=== PATIENT | male | born 2000 | race Caucasian/White ===

== ENCOUNTER 2023-06-28 09:48 | Emergency (ER) | payer OTHER, SELFPAY ==
[2023-06-28 09:56] VITALS: BP 134/77; PULSE 82; RESP 14; TEMP 36.5; O2SAT 99; BMI 25.0
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
--- NOTE | 2023-06-28 10:27 | DI.MRI.S_ITS ---
PROCEDURE: MR LUMBAR SPINE WO CON INDICATIONS: progressive weakness LE bilaterally, pain for 8 months TECHNIQUE: Noncontrast sagittal T1 spin echo and T2 fast echo, sagittal STIR, and T2 fast spin echo through the lumbar spine. In cases with scoliosis, additional coronal T2 fast spin echo may be performed. COMPARISON: None. FINDINGS: Image quality: Diagnostic Alignment: Unremarkable Marrow: No acute fracture. Mild disc desiccation L4-L5 and L5-S1 Annular fissures are seen at L4-L5 and L5-S1. Cord: Conus terminates at L1. Unremarkable appearance of the cauda equina nerve roots Soft tissues: Unremarkable paravertebral soft tissues Specific levels: L1-L2: No stenosis L2-L3: Small diffuse disc bulge. Mild facet arthropathy. Minimal left subarticular recess narrowing. L3-L4: Mild facet arthropathy and small diffuse disc bulge. No stenosis. L4-L5: Moderate sized central protrusion. There is cdcn-vp-oztsachv bilateral subarticular recess narrowing. Dgsd-fm-gbiocuvb facet arthropathy. Small diffuse disc bulge. Mild bilateral neural foraminal narrowing. L5-S1: Moderate-sized central protrusion. There is scdv-so-ggvxnelo central narrowing. Mild facet arthropathy bilaterally. Mild bilateral neural foraminal narrowing. IMPRESSION: Spondylotic changes particularly at L4-L5 and L5-S1 as described above. Dictated by: Chano Rodriguez M.D. on 06/28/2023 at 11:11 Approved by: Chano Rodriguez M.D. on 06/28/2023 at 11:14
[2023-06-28] MEDS: OXYCODONE/ACETAMINOPHEN 5/325 TABLET 1 TAB PO (10:34)
[2023-06-28] MEDS: IBUPROFEN 400 MG TABLET PO (10:35)
[2023-06-28] MEDS: dexAMETHasone 4 MG TABLET 12 MG PO (11:51)
[2023-06-28 11:56] VITALS: BP 130/73; PULSE 67; RESP 16; O2SAT 99
== END 2023-06-28 12:15 | disposition home or self-care (01) ==
PROVIDERS: Emergency Provider Emergency Medicine
DX: M51.36 Other intervertebral disc degeneration, lumbar region (principal); M54.50 Low back pain, unspecified; X58.XXXA Exposure to other specified factors, initial encounter
CPT/HCPCS: 72148; 99283; 99284; J1100

== ENCOUNTER 2023-09-28 19:22 | Emergency (ER) | payer OTHER, SELFPAY ==
[2023-09-28 19:58] VITALS: BP 133/78; PULSE 94; RESP 18; TEMP 36.8; O2SAT 96; BMI 29.1
== END 2023-09-28 21:14 | disposition left against medical advice (07) ==
PROVIDERS: Emergency Provider Emergency Medicine
CPT/HCPCS: 99281

== ENCOUNTER 2024-01-31 11:14 | Emergency (ER) | payer OTHER, SELFPAY ==
[2024-01-31 11:19] VITALS: BP 124/86; PULSE 78; RESP 17; TEMP 36.4; O2SAT 98; BMI 29.1
[2024-01-31 12:03] VITALS: BP 117/57; PULSE 75; RESP 14; O2SAT 98
--- NOTE | 2024-01-31 12:53 | ED_ITS ---
HPI - Back Pain/Injury <Dorinda Montez PA-C - Last Filed: 01/31/24 12:58> General Chief Complaint: Back Pain/Injury Stated Complaint: back injury, diff sitting Time Seen by Provider: 01/31/24 11:36 History of Present Illness HPI Narrative: 23-year-old male with past medical history low back pain due to disc herniations presents to the ED with an acute on chronic exacerbation of lower back pain. Patient states that his back pain started spontaneously 1 week ago, no new trauma. Patient states that the pain is in the lower back, radiates down to his left ankle down the back of his left leg. Patient is currently under the care of a neurosurgeon for the lower back issues, is awaiting epidural steroid injections. Patient denies numbness, tingling, weakness. Denies saddle paresthesias, urinary hesitancy. No fever, chills. Patient has been taking ibuprofen and Tylenol with minimal relief. Related Data Home Medications Medication Instructions Recorded Confirmed ibuprofen 200 mg capsule (Advil 400 mg PO Q8H PRN Pain (Scale 06/28/23 06/28/23 Liqui-Gel) Score 4-6) Previous Rx's Medication Instructions Recorded dexamethasone 4 mg tablet 10 mg (2.5 x 4 mg) PO DAILY #5 tabs 06/28/23 cyclobenzaprine 10 mg tablet 10 mg PO TID PRN muscle spasm 5 01/31/24 days #15 tabs dexamethasone 4 mg tablet 10 mg (2.5 x 4 mg) PO DAILY 3 days 01/31/24 #8 tabs Allergies Allergy/AdvReac Type Severity Reaction Status Date / Time No Known Drug Allergies Allergy Verified 01/31/24 11:21 Review of Systems <Dorinda Montez PA-C - Last Filed: 01/31/24 12:58> Constitutional Constitutional: Denies chills, Denies fatigue, Denies fever(s), Denies frequent falls, Denies lethargy and Denies weakness Eyes Eyes: Denies change in vision, Denies eye discharge, Denies irritation and Denies loss of vision ENT Ears, Nose, Mouth, and Throat: Denies change in voice, Denies dizziness, Denies neck pain, Denies sore throat and Denies throat swelling Cardiovascular Cardiovascular: Denies chest pain, Denies irregular heart rhythm, Denies lightheadedness, Denies palpitations, Denies dyspnea, Denies dyspnea on exertion and Denies orthopnea Respiratory Respiratory: Denies cough, Denies dyspnea, Denies dyspnea on exertion and Denies wheezing Gastrointestinal Gastrointestinal: Denies abdominal pain, Denies change in bowel habits, Denies diarrhea, Denies nausea and Denies vomiting Musculoskeletal Musculoskeletal: Reports back pain, Denies neck pain, Denies numbness and Reports radiating pain into limb Integumentary/Breasts Skin/Breast: Denies pruritus, Denies erythema, Denies rash and Denies wounds Neurologic Neurologic: Denies behavioral changes, Denies confusion, Denies dizziness, Denies frequent falls, Denies loss of vision, Denies numbness and Denies weakness Psychiatric Psychiatric: Denies anxiety, Denies behavioral changes, Denies confusion, Denies depression, Denies homicidal ideation and Denies suicidal ideation Endocrine Endocrine: Denies fatigue, Denies flushing and Denies palpitations Hematologic/Lymphatic Hematologic/Lymphatic: Denies easy bruising Allergic/Immunologic Allergic/Immunologic: Denies urticaria, Denies throat swelling and Denies wheezing Patient History <Dorinda Montez PA-C - Last Filed: 01/31/24 12:58> Medical History Healthy adult male Social History Smoking Status: Current every day smoker Smoking Status: Current every day smoker tobacco type: vaping alcohol intake frequency: 0-2 drinks per day Substance Use Type: does not use Exam <Dorinda Montez PA-C - Last Filed: 01/31/24 12:58> Narrative Exam Narrative: Const General:?cooperative, healthy appearing and comfortable [facility] Head:?normal to inspection Ears:?hearing grossly normal bilaterally Nose:?external nose normal Face and sinus:?normal facial exam and sinuses nontender Mouth:?oral mucosae normal Throat:?posterior oropharynx normal Eyes General:?appearance normal, both eyes and all related structures Neck Neck:?normal visual inspection and no lymphadenopathy noted Resp Effort & Inspection:?normal respiratory effort Auscultation:?clear to auscultation bilaterally Cardio Rate:?regular rate Rhythm:?regular rhythm Musculoskeletal No midline tenderness to palpation. No paraspinal tenderness to palpation. There is full range of motion. Strength and sensation is intact. Patient is neurovascularly intact. Gait normal Neuro General:?patient alert, patient awake and patient oriented x3 Initial Vital Signs Initial Vital Signs: Vital Signs Temperature 97.6 F 01/31/24 11:19 Pulse Rate 78 01/31/24 11:19 Respiratory Rate 17 01/31/24 11:19 Blood Pressure 124/86 01/31/24 11:19 Pulse Oximetry 98 01/31/24 11:19 Oxygen Delivery Method Room Air 01/31/24 11:19 <Leigh Ann Acevedo DO - Last Filed: 01/31/24 18:56> Initial Vital Signs Initial Vital Signs: Vital Signs Temperature 97.6 F 01/31/24 11:19 Pulse Rate 78 01/31/24 11:19 Respiratory Rate 17 01/31/24 11:19 Blood Pressure 124/86 01/31/24 11:19 Pulse Oximetry 98 01/31/24 11:19 Oxygen Delivery Method Room Air 01/31/24 11:19 Course <Dorinda Montez PA-C - Last Filed: 01/31/24 12:58> Vital Signs Vital signs: Vital Signs - 8 hr 01/31/24 11:19 01/31/24 12:03 Temperature 97.6 F Pulse Rate 78 75 Respiratory Rate 17 14 Blood Pressure 124/86 117/57 L Pulse Oximetry 98 98 Oxygen Delivery Method Room Air Room Air <Leigh Ann Acevedo DO - Last Filed: 01/31/24 18:56> Vital Signs Vital signs: Vital Signs - 8 hr 01/31/24 11:19 01/31/24 12:03 Temperature 97.6 F Pulse Rate 78 75 Respiratory Rate 17 14 Blood Pressure 124/86 117/57 L Pulse Oximetry 98 98 Oxygen Delivery Method Room Air Room Air MDM - Back Pain/Injury <MANJINDER De Guzman Last Filed: 01/31/24 12:58> MDM Narrative Medical decision making narrative: 23-year-old male with past medical history low back pain due to disc herniations presents to the ED with an acute on chronic exacerbation of lower back pain. No midline tenderness to palpation, no new trauma. Unlikely fracture/dislocation. No red flag symptoms indicating a spinal emergency. No imaging indicated at this time. Will prescribe a dose of oral steroids, muscle relaxants. Patient agrees to follow-up with his neurosurgeon as soon as possible. ED return precautions discussed with patient. Patient verbalized understanding. Medical records reviewed: Yes Discharge Plan Departure Patient Disposition: Home Clinical Impression: Low back pain radiating down leg Instructions: DI for Back Pain With Sciatica Activity Restrictions/Additional Instructions: You were evaluated in the ED today for an acute exacerbation of lower back pain. Given that there was no new trauma or neurological deterioration, there is no indication for imaging today. you are being prescribed some oral steroids to address the acute inflammation. Please take those as prescribed. You were also being prescribed muscle relaxants to help with muscle spasms. The muscle relaxant might make you sleepy, therefore avoid using when driving or operating machinery. You may continue taking 800 mg of ibuprofen every 8 hours with food. You may also take Tylenol 1000 mg every 8 hours. Please follow-up with your neurosurgeon as soon as possible for further evaluation and possible epidural steroid injections. Return to the ED if you have worsening symptoms, numbness, tingling, weakness, urinary difficulties. Prescriptions: New dexamethasone 4 mg tablet 10 mg PO DAILY 3 Days Qty: 8 0RF cyclobenzaprine 10 mg tablet 10 mg PO TID PRN (Reason: muscle spasm) 5 Days Qty: 15 0RF No Action ibuprofen [Advil Liqui-Gel] 200 mg Capsule 400 mg PO Q8H PRN (Reason: Pain (Scale Score 4-6)) dexamethasone 4 mg tablet 10 mg PO DAILY Qty: 5 0RF Stand Alone Forms: Patient Portal/API/Survey ED Sign-out <Leigh Ann Acevedo DO - Last Filed: 01/31/24 18:56> Cosign ED Attending Andrea Attestation: I was immediately available in the department for consultation.
== END 2024-01-31 12:21 | disposition home or self-care (01) ==
PROVIDERS: Emergency Provider Student in an Organized Health Care Education/Training Program
DX: M54.50 Low back pain, unspecified (principal)
CPT/HCPCS: 99281

== ENCOUNTER → 2024-07-28 07:28 | Outpatient (CLI) | payer OTHER, SELFPAY ==
--- NOTE | 2024-07-28 07:30 | DI.MRI.S_ITS ---
PROCEDURE: MR LUMBAR SPINE WO CON INDICATIONS: back pain TECHNIQUE: Noncontrast sagittal T1 spin echo and T2 fast echo, sagittal STIR, and T2 fast spin echo through the lumbar spine. In cases with scoliosis, additional coronal T2 fast spin echo may be performed. COMPARISON: [facility], MR, MR LUMBAR SPINE WO CON, 06/28/2023, 10:34. FINDINGS: Image quality: Diagnostic, with note made of motion artifact. Alignment and Curvature: There is minimal retrolisthesis at L5-S1. Bone Marrow: Marrow is of normal overall signal. No acute vertebral body compression fractures. Spinal Cord: Conus medullaris terminates at the L1 level. Visualized cord demonstrates normal signal and size. Paraspinous Soft Tissues: No paravertebral masses. T12-L1: Normal appearance. L1-L2: Normal appearance. L2-L3: No significant abnormality is seen. Similar prior. L3-L4: No significant abnormality is seen at this level. Similar to prior. L4-L5: Mild loss of disc height is seen. Loss of disc signal is seen. Mild to moderate disc bulge is seen, with a central/left disc protrusion. There is a focal annular fissure seen posteriorly. Mild to moderate facet hypertrophy can be seen. There is moderate left-sided and zhkq-bv-anbcqidy right-sided neural foraminal narrowing. Moderate central canal narrowing is seen. Mass effect can be seen upon the left L4 nerve root. When comparison is made with the prior images, these findings are similar. L5-S1: Moderate loss of disc height is seen. Loss of disc signal is seen. Mild generalized disc bulge is seen. There is a superimposed central disc protrusion. There is a focal annular fissure seen posteriorly. Mild to moderate facet hypertrophy can be seen. There is at least moderate bilateral neural foraminal narrowing, left worse than right. Moderate central canal narrowing is seen. When comparison is made with the prior images, these findings are similar. IMPRESSION: Focal lower lumbar spine degenerative changes are seen, which are similar to the prior MRI. Dictated by: Compa Krause M.D. on 07/28/2024 at 8:24 Approved by: Compa Krause M.D. on 07/28/2024 at 8:27
== END ==
PROVIDERS: Referring Provider Neurological Surgery; Visit Provider Neurological Surgery
DX: M51.362 Other intervertebral disc degeneration, lumbar region with discogenic back pain and lower extremity pain (principal); M51.369 Other intervertebral disc degeneration, lumbar region without mention of lumbar back pain or lower extremity pain; M48.061 Spinal stenosis, lumbar region without neurogenic claudication; Q05.7 Lumbar spina bifida without hydrocephalus; M47.816 Spondylosis without myelopathy or radiculopathy, lumbar region; M51.379 Other intervertebral disc degeneration, lumbosacral region without mention of lumbar back pain or lower extremity pain; M48.07 Spinal stenosis, lumbosacral region; M47.817 Spondylosis without myelopathy or radiculopathy, lumbosacral region
CPT/HCPCS: 72148